=== PATIENT | male | born 1995 | race Caucasian/White ===

== ENCOUNTER 2018-12-23 11:50 | Outpatient (RCR) | payer OTHER ==
--- NOTE | 2018-12-23 12:40 | RADIOLOGY IMAGING REPORT ---
FACILITY: [facility] - [place] PATIENT NAME: Chico Tatum : 1995 MR: [id number] V: [id number] EXAM DATE: ORDERING PHYSICIAN: OSITO MCELROY TECHNOLOGIST: Location: [facility] Patient: Chico Tatum : 1995 Visit/Account:[id number] Date of Sevice: 12/23/2018 EXAMINATION: Orbit radiograph single view HISTORY: Pre-MRI screening. COMPARISON: None. FINDINGS: Single view of the orbits is obtained. No radiopaque or metallic foreign bodies of either orbit. Visualized bony structures are intact. IMPRESSION: Orbits are cleared for MRI. Report Dictated By: Perla Hdz MD at 12/23/2018 12:34 PM Report E-Signed By: Perla Hdz MD at 12/23/2018 12:34 PM WSN:[id number]
[2018-12-23] MEDS ORDERED: NS 0.9% 20 ML SDV 20 ML ONE (12:50)
[2018-12-23] MEDS ORDERED: GADOBENATE 529MG/1ML 5 ML VIAL ONE (12:50)
[2018-12-23] MEDS ORDERED: IOPAMIDOL-200 50 ML VIAL IS ONE (12:50)
--- NOTE | 2018-12-23 16:07 | RADIOLOGY IMAGING REPORT ---
FACILITY: [facility] PATIENT NAME: Chico Tatum : 1995 MR: [id number] V: [id number] EXAM DATE: [id number] ORDERING PHYSICIAN: OSITO MCELROY TECHNOLOGIST: Location: [facility] Patient: Chico Tatum : 1995 Visit/Account:[id number] Date of Sevice: 12/23/2018 Exam type: XR ARTHROGRAM SHOULDER History: Chronic left shoulder pain, labral tear, ligamentous laxity, injury five years ago with surg ical repair Comparison: None. Findings: Informed consent was obtained. The patient's left shoulder was prepped and draped usual sterile [facility] ion. Local anesthesia was Gale 1% lidocaine. Under fluoroscopic guidance a 22-gauge spinal needl e was advanced percutaneously into the anterior aspect of the left shoulder. Approximately 2 mL of I sovue-200 mixed with a dilute gadolinium suspension was injected through the needle. Contrast has ex travasated and was not within the joint space. The left shoulder was then reprepped and draped in [facility] sterile fashion. Additional local anesthesia, 1% lidocaine. A 22-gauge spinal needle was advanc ed percutaneously into the anterior aspect left shoulder joint. 2 mL of Isovue-200 was injected to c onfirm needle placement. Approximately 10 mL of dilute gadolinium suspension was then injected into the left shoulder joint. The patient was then taken to MR for further imaging. IMPRESSION: 1. Technically difficult but successful left shoulder arthrogram The fluoroscopy dose area product was 134.21 micro-Alexander per meter squared Report Dictated By: Sharifa Alvarez MD at 12/23/2018 3:58 PM Report E-Signed By: Sharifa Alvarez MD at 12/23/2018 4:02 PM WSN:[id number]
--- NOTE | 2018-12-23 16:59 | RADIOLOGY IMAGING REPORT ---
FACILITY: PATIENT NAME: Chico Tatum : 1995 MR: [id number] V: [id number] EXAM DATE: ORDERING PHYSICIAN: OSITO MCELROY TECHNOLOGIST: Location: [facility] - [place] Patient: Chico Tatum : 1995 Visit/Account:[id number] Date of Sevice: 12/23/2018 MR arthrogram left shoulder Indication: Chronic left shoulder pain Comparison: None available. Technique: Sagittal and coronal T1 weighted fat saturated and T2-weighted fat saturated as well as ax ial T1-weighted and a gradient echo images were obtained through the left shoulder after intra-articu lar administration of gadolinium. Findings: Rotator cuff: Minimal undersurface fraying distal supraspinatus. Infraspinatus is intact as well as the teres minor and subscapularis. Biceps tendon: The intra-articular portion of the tendon is intact and unremarkable. Extra-articular portion of the long head of biceps tendon appears unremarkable within the bicipital g roove. AC joint and acromion: Moderate AC joint degenerative changes. There is also lateral downsloping acromion seen which can pre dispose to impingement. Labrum and capsular ligaments: Suture anchor seen within the posterior inferior glenoid suggesting prior labral repair. There is mil d irregular signal and contrast and within the posterior inferior labrum on image 16 of the axial ser ies and on image 12 the sagittal series which could represent a small recurrent tear at the chondral labral junction. There is also irregularity and truncation the posterior superior labrum concerning for a nondisplaced tear best seen on image 13 of coronal series and on image 11 of the axial series. Capsular ligaments are intact with no evidence of focal abnormality. Bones and cartilage: No evidence of abnormal marrow edema or focal bony lesions. No evidence of any bony erosions or vasquez ostitis. No focal chondral defect glenohumeral joint cartilage.. Effusion, bursitis: There is no contrast seen to extend into the subacromial/subdeltoid bursa. IMPRESSION: 1. Findings concerning for nondisplaced tearing of the posterior superior labrum. There is also a sub tle oblique tear suggested at the chondral labral junction of the posterior inferior labrum with an a djacent suture anchor within the underlying glenoid likely from prior labral repair. 2. Lateral downsloping acromion seen which can predispose to impingement. Report Dictated By: Won Ureña MD at 12/23/2018 3:38 PM Report E-Signed By: Won Ureña MD at 12/23/2018 4:54 PM WSN:[id number]
== END 2018-12-23 18:00 | disposition home or self-care (01) ==
LOC: MRI 11:50
PROVIDERS: ATTEND Physician Assistant
DX: M25.512 Pain in left shoulder (principal); S43.432D Superior glenoid labrum lesion of left shoulder, subsequent encounter; M24.212 Disorder of ligament, left shoulder; G89.29 Other chronic pain
CPT/HCPCS: 23350; 70030; 73222; 77002; A9577; J7050; Q9966; 27369

== ENCOUNTER → 2019-01-12 | Outpatient (CLI) | payer OTHER ==
--- NOTE | 2019-01-12 08:34 | RADIOLOGY IMAGING REPORT ---
FACILITY: [facility] - [place] PATIENT NAME: Chico Tatum : 1995 MR: [id number] V: [id number] EXAM DATE: ORDERING PHYSICIAN: DAVID ZALDIVAR TECHNOLOGIST: Location: [facility] [place] Patient: Chico Tatum : 1995 Visit/Account:[id number] Date of Sevice: 01/12/2019 Study: Frontal and lateral views of the chest Indication: Preop Comparison study: None Findings: PA and lateral views of the chest demonstrate no evidence of acute infiltrate. There is no evidence of pleural effusion. There is no evidence of pneumothorax. The mediastinal, cardiac, and diaphragmatic contours are unremarkable. The visualized bony structures are unremarkable. IMPRESSION: Unremarkable chest. Report Dictated By: Leo Garcia at 01/12/2019 8:29 AM Report E-Signed By: Leo Garcia at 01/12/2019 8:30 AM WSN:[email or web address]
== END ==
LOC: RAD 08:05
PROVIDERS: ATTEND Nurse Practitioner Family
DX: Z01.818 Encounter for other preprocedural examination (principal)
CPT/HCPCS: 71046

== ENCOUNTER → 2019-01-13 | Outpatient (CLI) | payer OTHER ==
[2019-01-13 08:09] LABS: PLATELET COUNT, AUTOMATED 240 K/uL (150-450)
== END ==
LOC: LAB 07:39
PROVIDERS: ATTEND Nurse Practitioner Family
DX: Z01.812 Encounter for preprocedural laboratory examination (principal)
CPT/HCPCS: 36415; 82310; 82374; 82435; 82565; 82947; 84132; 84295; 84520; 85025

== ENCOUNTER → 2019-01-14 | Outpatient (CLI) | payer OTHER ==
--- NOTE | 2019-01-14 17:09 | EKG ---
FACILITY: [facility] - [place] PATIENT NAME: INOCENCIO MOON : [id number] MR: [id number] V: [id number] EXAM DATE: ORDERING PHYSICIAN: DAVID ZALDIVAR TECHNOLOGIST: Test Reason : PRE-OP Blood Pressure : / mmHG Vent. Rate : 063 BPM Atrial Rate : 063 BPM P-R Int : 156 ms QRS Dur : 106 ms QT Int : 388 ms P-R-T Axes : 072 066 051 degrees QTc Int : 397 ms Normal sinus rhythm Normal ECG No previous ECGs available Confirmed by KARI HOUGH ([id number]) on 01/15/2019 6:48:48 AM Referred By: Confirmed By:KARI HOUGH
== END ==
LOC: RESP 16:32
PROVIDERS: ATTEND Nurse Practitioner Family
DX: Z01.818 Encounter for other preprocedural examination (principal)
CPT/HCPCS: 93005

== ENCOUNTER 2019-03-16 09:24 | Emergency (ER) | payer OTHER ==
[2019-03-16] MEDS ORDERED: ACET500T68 PO (09:30)
[2019-03-16] MEDS ORDERED: MELO-207 PO (09:30)
--- NOTE | 2019-03-16 09:35 | ER Report ---
History and Physical Time Seen By MD: 09:35 Hx. of Stated Complaint: LIFTING WITH SHOULDER POST OP, PAIN IN LEFT SHOULDER HPI/ROS CHIEF COMPLAINT: Left shoulder pain HISTORY OF PRESENT ILLNESS: Patient is a 23-year-old male here with complaints of left shoulder pain, history of labrum repair 6 weeks prior. Patient reportedly was helping his in-laws moved yesterday when he dropped the couch, attempted to lift a box with subsequent development of pain. Patient is neurovascularly intact at time of evaluation complaining of anterior and posterior shoulder tenderness on palpation and with range of motion. Patient is concerned that he may have reinjured his prior surgical site. Denies further injuries at this time REVIEW OF SYSTEMS: Constitutional: No fever, no chills. Musculoskeletal: + left shoulder tenderness with ROM or palpation Skin: No rashes. Neurological: NV intact in left UE Allergies: Coded Allergies: tramadol (Verified Adverse Reaction, Severe, SEIZURE, 03/16/19) Home Meds Reported Medications Acetaminophen (TYLENOL EXTRA STRENGTH) 500 Mg Tablet, 500 MG PO PRN, TAB 03/16/19 Meloxicam (MELOXICAM) 15 Mg Tablet, 15 MG PO PRN 03/16/19 Constitutional Vital Sign - Last 24 Hours 03/16/19 09:30 Temp 98.1 Pulse 89 Resp 16 B/P (MAP) 138/97 Pulse Ox 97 O2 Delivery Room Air Physical Exam General Appearance: The patient is alert, has no immediate need for airway protection and no signs of toxicity. Uncomfortable appearing with movement Neurological: NV intact distal LUE, cap refill < 2 s Skin: Warm and dry, no rashes. Musculoskeletal: + Pain with range of motion testing of the left upper extremity in all directions. Tenderness on palpation of the anterior and posterior aspects of the shoulder without obvious bony deformity. DIFFERENTIAL DIAGNOSIS: After history and physical exam differential diagnosis was considered for rotator cuff tear, labrum tear, fracture Medical Decision Making EKG/Imaging Imaging PATIENT NAME: Chico Tatum : 1995 MR: [id number] V: [id number] EXAM DATE: ORDERING PHYSICIAN: OMAR CONKLIN TECHNOLOGIST: Location: [facility] [place] Patient: Chico Tatum : 1995 Visit/Account:[id number] Date of Sevice: 03/16/2019 Technique: SHOULDER MIN 2 VIEWS LEFT HISTORY: Postoperative pain Comparison studies: 12/13/2018 FINDINGS: There is no acute fracture. The alignment of the left shoulder is preserved. Soft tissues are unremarkable. IMPRESSION: 1. No acute osseous process. ED Course/Re-evaluation ED Course Patient is a 23-year-old male here with complaints of low shoulder pain after an injury while moving his in-laws yesterday. Patient reportedly had labrum repair in that shoulder approximately 6 weeks ago and complains of anterior and posterior pain in the same locations of his prior injury. Patient is neurovascularly intact in the distal extremity with good capillary refill. X-ray imaging showed no acute fractures. Patient does have significant pain on range of motion testing and on palpation of the anterior and posterior aspects of the shoulder. Patient was placed in a sling and advised to follow-up with his surgeon. Return precautions provided. Decision to Disposition Date: March 16, 2019 Decision to Disposition Time: 10:31 Depart Departure Latest Vital Signs Vital Signs Date Time Temp Pulse Resp B/P (MAP) Pulse Ox O2 Delivery O2 Flow Rate FiO2 03/16/19 09:30 98.1 89 16 138/97 97 Room Air Impression: Primary Impression: Shoulder pain Condition: Condition Unchanged Disposition: HOME OR SELF-CARE New Scripts Oxycodone Hcl (OXYCODONE HCL) 5 Mg Tablet 5 MG PO Q6-8H PRN for PAIN, #10 TAB Prov: OMAR CONKLIN DO 03/16/19 Patient Instructions: Shoulder Pain (ED) Additional Instructions: Please utilize the sling for comfort. Please make an appointment for close follow-up with your surgeon for reevaluation within the next week if possible. Please return promptly if you develop numbness, motor weakness, worsening pain, joint instability. Please continue to alternate Tylenol or meloxicam as needed for primary pain control, you may take 1 tablet of oxycodone every 6-8 hours as needed for breakthrough pain control. Please do not drink alcohol or drive while on this medication as it may be sedating. No acute fracture is identified on x- ray imaging. OMAR CONKLIN DO March 16, 2019 09:35
[2019-03-16] MEDS ORDERED: oxyCODONE HCL 5 MG CAP PO ONE (09:55)
--- NOTE | 2019-03-16 10:20 | RADIOLOGY IMAGING REPORT ---
FACILITY: [facility] - [place] PATIENT NAME: Chico Tatum : 1995 MR: [id number] V: [id number] EXAM DATE: ORDERING PHYSICIAN: OMAR CONKLIN TECHNOLOGIST: Location: [facility] [place] Patient: Chico Tatum : 1995 Visit/Account:[id number] Date of Sevice: 03/16/2019 Technique: SHOULDER MIN 2 VIEWS LEFT HISTORY: Postoperative pain Comparison studies: 12/13/2018 FINDINGS: There is no acute fracture. The alignment of the left shoulder is preserved. Soft tissues are unremarkable. IMPRESSION: 1. No acute osseous process. Report Dictated By: Sascha Barrett DO at 03/16/2019 10:13 AM Report E-Signed By: Sascha Barrett DO at 03/16/2019 10:15 AM WSN:[id number]
[2019-03-16] MEDS ORDERED: OXYC5TAB38 PO (10:29)
[2019-03-16 10:30] VITALS: BP 114/94
== END 2019-03-16 10:54 | disposition home or self-care (01) ==
LOC: ER 10:05
DX: M25.512 Pain in left shoulder (principal)
CPT/HCPCS: 99283